=== PATIENT | female | born 1970 | race Caucasian/White ===

== ENCOUNTER 2019-05-16 17:06 | Observation (INO) | payer OTHER ==
[2019-05-16] MEDS ORDERED: AMOXIC-POT CLAV 875MG STARTER PACK 2 TAB BTL PO STA (17:28)
--- NOTE | 2019-05-16 17:32 | ED ---
General Adult HPI - General Chief complaint: Animal Bite Stated complaint: dog bite Time Seen by Provider: 05/16/19 17:21 Source: patient, RN notes reviewed Mode of arrival: ambulatory Limitations: no limitations - History of Present Illness Initial comments: 48-year-old female presents to the emergency department for a chief complaint of left thumb injury. Patient was bitten on the left thumb by a her dog last night. Patient states that she did clean the area thoroughly however today it was red so she went to urgent care. They sent her to the emergency department for further evaluation. Patient denies any streaking redness but states it does appear to be spreading somewhat up the thumb. Patient states she is unable to bend the IP joint of the left thumb. Patient is up-to-date on tetanus within the past 5 years. Dog is immunized for rabies and up-to-date. She denies fevers or chills. She denies any recent for immunocompromising state.Patient has no other complaints at this time including shortness of breath, chest pain, abdominal pain, nausea or vomiting, headache, or visual changes. - Related Data Home Medications Medication Instructions Recorded Confirmed Ibuprofen [Motrin Ib] 600 mg PO Q8H PRN 05/16/19 05/16/19 Allergies Allergy/AdvReac Type Severity Reaction Status Date / Time No Known Allergies Allergy Verified 05/16/19 18:26 Review of Systems ROS Statement: Those systems with pertinent positive or pertinent negative responses have been documented in the HPI. ROS Other: All systems not noted in ROS Statement are negative. Past Medical History Past Medical History: No Reported History History of Any Multi-Drug Resistant Organisms: None Reported Past Surgical History: Section Past Psychological History: No Psychological Hx Reported Smoking Status: Current every day smoker Past Alcohol Use History: Occasional Past Drug Use History: None Reported General Exam Limitations: no limitations General appearance: alert, in no apparent distress Head exam: Present: atraumatic, normocephalic, normal inspection Eye exam: Present: normal appearance, PERRL, EOMI. Absent: scleral icterus, conjunctival injection, periorbital swelling ENT exam: Present: normal exam, mucous membranes moist Neck exam: Present: normal inspection. Absent: tenderness, meningismus, lymphadenopathy Respiratory exam: Present: normal lung sounds bilaterally. Absent: respiratory distress, wheezes, rales, rhonchi, stridor Cardiovascular Exam: Present: regular rate, normal rhythm, normal heart sounds. Absent: systolic murmur, diastolic murmur, rubs, gallop, clicks Extremities exam: Present: other (Superficial lacerations noted to the dorsum of the left thumb. Capillary refill less than 2 seconds. There is erythema extending into the dorsum of the first metacarpal. No streaking redness. Patient unable to flex the IP joint of the left thumb. Patient is able to fully flex the MCP joint of the left thumb.) Course Vital Signs 05/16/19 17:25 Temperature 98.6 F Pulse Rate 68 Respiratory 18 Rate Blood Pressure 123/86 O2 Sat by Pulse 98 Oximetry Medical Decision Making - Medical Decision Making HPI and physical exam is documented. Dr. Ch evaluated patient, given inpatient admission with IV antibiotics. CBC / CMP unremarkable. CRP mildly elevated at 18.1. X-ray of the left thumb shows no acute fracture. I discussed this case with Maame Vazquez who recommends Unasyn and moist heat pad. Accepts the admission. - Lab Data Result diagrams: 05/16/19 18:15 05/16/19 18:27 Lab Results 05/16/19 05/16/19 05/16/19 Range/Units 18:15 18:27 18:27 WBC 8.8 (3.8-10.6) k/uL RBC 4.81 (3.80-5.40) m/uL Hgb 13.7 (11.4-16.0) gm/dL Hct 42.2 (34.0-46.0) % MCV 87.7 (80.0-100.0) fL MCH 28.5 (25.0-35.0) pg MCHC 32.5 (31.0-37.0) g/dL RDW 13.8 (11.5-15.5) % Plt Count 317 (150-450) k/uL Neutrophils % 58 % Lymphocytes % 32 % Monocytes % 6 % Eosinophils % 2 % Basophils % 0 % Neutrophils # 5.1 (1.3-7.7) k/uL Lymphocytes # 2.8 (1.0-4.8) k/uL Monocytes # 0.5 (0-1.0) k/uL Eosinophils # 0.1 (0-0.7) k/uL Basophils # 0.0 (0-0.2) k/uL Sodium 141 (137-145) mmol/L Potassium 4.0 (3.5-5.1) mmol/L Chloride 107 (98-107) mmol/L Carbon Dioxide 25 (22-30) mmol/L Anion Gap 9 mmol/L BUN 18 H (7-17) mg/dL Creatinine 0.91 (0.52-1.04) mg/dL Est GFR (CKD-EPI)AfAm 87 (>60 ml/min/1.73 sqM) Est GFR (CKD-EPI)NonAf 75 (>60 ml/min/1.73 sqM) Glucose 113 H (74-99) mg/dL Plasma Lactic Acid Scottie 1.5 (0.7-2.0) mmol/L Calcium 9.4 (8.4-10.2) mg/dL Total Bilirubin 0.5 (0.2-1.3) mg/dL AST 30 (14-36) U/L ALT 29 (4-34) U/L Alkaline Phosphatase 79 (38-126) U/L C-Reactive Protein 18.1 H (<10.0) mg/L Total Protein 8.3 H (6.3-8.2) g/dL Albumin 4.6 (3.5-5.0) g/dL Disposition Clinical Impression: Dog bite Disposition: ADMITTED IP TO THIS [facility] Instructions (If sedation given, give patient instructions): Animal Bite (ED) Is patient prescribed a controlled substance at d/c from ED?: No Referrals: None,Stated [Primary Care Provider] - 1-2 days Time of Disposition: 18:59
--- NOTE | 2019-05-16 17:58 | XR ---
EXAMINATION TYPE: XR finger LT DATE OF EXAM: 05/16/2019 COMPARISON: NONE HISTORY: Dogbite injury with pain. TECHNIQUE: 3 views left thumb are acquired. FINDINGS: No acute fracture or dislocation is seen. Joint spaces in the left thumb are preserved. No suspicious radiodense soft tissue foreign body present. IMPRESSION: As above.
[2019-05-16] MEDS ORDERED: SODIUM CHLORIDE 0.9% 1,000 ML IV STA (18:04)
[2019-05-16] MEDS ORDERED: AMPICILLIN-SULBACTAM 3 GM in SODIUM CHLORIDE 0.9% 100 ML IVPB STA (18:04)
[2019-05-16 18:45] LABS: Basophils % (A) 0 %; Eosinophils # (A) 0.1 k/uL (0-0.7); Eosinophils % (A) 2 %; HCT 42.2 % (34.0-46.0); HGB 13.7 gm/dL (11.4-16.0); Lymphocytes # (A) 2.8 k/uL (1.0-4.8); Lymphocytes % (A) 32 %; MCH 28.5 pg (25.0-35.0); MCHC 32.5 g/dL (31.0-37.0); MCV 87.7 fL (80.0-100.0); Mean Platelet Volume 7.9; Monocytes # (A) 0.5 k/uL (0-1.0); Monocytes % (A) 6 %; Neutrophils # (A) 5.1 k/uL (1.3-7.7); Neutrophils % (A) 58 %; Platelet Count 317 k/uL (150-450); RBC 4.81 m/uL (3.80-5.40); RDW 13.8 % (11.5-15.5); WBC 8.8 k/uL (3.8-10.6)
[2019-05-16 18:52] LABS: Albumin 4.6 g/dL (3.5-5.0); C Reactive Protein 18.1 mg/L (<10.0); Calcium 9.4 mg/dL (8.4-10.2); Total Bilirubin 0.5 mg/dL (0.2-1.3); Total Protein 8.3 g/dL (6.3-8.2)
[2019-05-16] MEDS ORDERED: NALOXONE 0.4 MG/ML 1 ML VIAL IV PRN (18:59)
[2019-05-16] MEDS ORDERED: traMADol 50 MG TAB PO PRN (18:59)
[2019-05-16] MEDS ORDERED: ONDANSETRON 4 MG/2 ML VIAL IVP PRN (18:59)
[2019-05-16] MEDS ORDERED: HYDROcodone/APAP 5-325MG 1 EACH TAB PO PRN (18:59)
[2019-05-16] MEDS ORDERED: AMPICILLIN-SULBACTAM 3 GM in SODIUM CHLORIDE 0.9% 100 ML IVPB SCH (19:15)
[2019-05-16] MEDS: SODIUM CHLORIDE 0.9% 1,000 ML IV SCH (19:30)
[2019-05-16] MEDS ORDERED: ACETAMINOPHEN TAB 325 MG TAB PO PRN (21:36)
[2019-05-16] MEDS: IBUPROFEN 800 MG TAB PO PRN (21:43)
[2019-05-17] MEDS: AMPICILLIN-SULBACTAM 3 GM in SODIUM CHLORIDE 0.9% 100 ML IVPB SCH ×5 (00:33→23:31)
[2019-05-17] MEDS: SODIUM CHLORIDE 0.9% 1,000 ML IV SCH ×3 (03:03→17:06)
--- NOTE | 2019-05-17 11:18 | P.HPOR ---
History of Present Illness H&P Date: 05/17/19 Chief Complaint: Dog bite left thumb This is a 48-year-old female who is admitted to the emergency department last evening. She was bit by her own dog on 05/15/2019. She began to have increased pain, swelling and redness. She states that her dog is up-to-date on its shots. The emergency department had concerns over her flexor tendon sheath and was admitted for IV antibiotics. Patient states that her pain is improved today. Past Medical History Past Medical History: No Reported History History of Any Multi-Drug Resistant Organisms: None Reported Past Surgical History: Section Past Anesthesia/Blood Transfusion Reactions: No Reported Reaction Past Psychological History: No Psychological Hx Reported Smoking Status: Current every day smoker Past Alcohol Use History: Occasional Past Drug Use History: None Reported - Past Family History Mother Family Medical History: No Reported History Father History Unknown: Yes Medications and Allergies Home Medications Medication Instructions Recorded Confirmed Type Ibuprofen [Motrin Ib] 600 mg PO Q8H PRN 05/16/19 05/16/19 History Allergies Allergy/AdvReac Type Severity Reaction Status Date / Time No Known Allergies Allergy Verified 05/16/19 18:26 Physical Examination This is a pleasant 48-year-old female in no acute distress. She is alert and oriented at this time. Exam of the left hand reveals mild erythema and mild swelling to the thumb. There are 2 small punctures about the dorsal and radial aspect of the thumb. She has full extension of the thumb and slightly limited flexion secondary to pain and swelling. She complains of pain about the dorsum of the thumb with flexion. There is no tenderness with palpation about the flexor tendon sheath. Neurovascular status to the upper extremity is intact. Results Hand x-rays are reviewed. There is a slight irregularity noted to the distal aspect of the proximal phalanx. There is suspicion for a nondisplaced fracture. - Labs Labs: Abnormal Lab Results - Last 24 Hours (Table) 05/16/19 Range/Units 18:27 BUN 18 H (7-17) mg/dL Glucose 113 H (74-99) mg/dL C-Reactive Protein 18.1 H (<10.0) mg/L Total Protein 8.3 H (6.3-8.2) g/dL H & H 05/16/19 Range/Units 18:15 Hgb 13.7 (11.4-16.0) gm/dL Hct 42.2 (34.0-46.0) % Result Diagrams: 05/16/19 18:15 05/16/19 18:27 Assessment and Plan (1) Cellulitis of left thumb Current Visit: Yes Status: Acute Code(s): L03.012 - CELLULITIS OF LEFT FINGER SNOMED Code(s): 34728488386230224 (2) Dog bite Current Visit: Yes Status: Acute Code(s): W54.0XXA - BITTEN BY DOG, INITIAL ENCOUNTER SNOMED Code(s): 674708777 Plan: The clinical and x-ray findings are discussed with the patient. It is recommended she continue IV antibiotics for at least 24 more hours. She is to continue moist heat to the thumb as well. She may resume her regular diet. I will order a thumb brace
[2019-05-17] MEDS: IBUPROFEN 800 MG TAB PO PRN (19:14)
[2019-05-18] MEDS: AMPICILLIN-SULBACTAM 3 GM in SODIUM CHLORIDE 0.9% 100 ML IVPB SCH ×2 (08:21→12:10)
[2019-05-18 14:46] VITALS: BP 139/76; PULSE 60; RESP 17; TEMP 98
--- NOTE | 2019-05-18 15:04 | P.DS ---
Providers Date of admission: 05/16/19 19:09 Expected date of discharge: 05/18/19 Attending physician: Kana Garvey Primary care physician: Stated None - Discharge Diagnosis(es) (1) Cellulitis of left thumb Status: Acute (2) Dog bite Status: Acute (3) Fracture of thumb, left, closed Status: Acute Hospital Course: The patient is a 48-year-old female who presented to the emergency department on 05/16/2019 after sustaining a dog bite on her left thumb on 05/15/2019. She was bit by her own dog who is up-to-date on his vaccinations. She noticed increased swelling and pain in the thumb and presented to the emergency department for further evaluation. There was a concern for flexor tenosynovitis and she was placed on antibiotics and admitted for further care by orthopedics. She was started on Unasyn and moist heat. The thumb has improved since admission. A brace has been ordered for her thumb but the patient is unable to wear due to pain at this time. A fracture was found at the head of the proximal phalanx which is nondisplaced. On the day of discharge, the patient is alert and oriented 3. Exam of the left hand reveals improved erythema and swelling to the left thumb, now concentrated to the IP joint. There are 2 puncture wounds to the dorsal radial aspect of the thumb. She has full extension and limited flexion of the thumb due to pain. There is tenderness to the IP joint of the thumb with no tenderness along the flexor tendon sheath. Neurological and circulatory status is intact. The patient is orthopedically stable for discharge home today on oral antibiotics. She will follow with Dr. Kana Garvey in the office. Pertinent Studies: Laboratory Tests 05/16/19 05/16/19 18:15 18:27 WBC 8.8 RBC 4.81 Hgb 13.7 BUN 18 H Est GFR (CKD-EPI)NonAf 75 C-Reactive Protein 18.1 H Total Protein 8.3 H Patient Condition at Discharge: Good Plan - Discharge Summary New Discharge Prescriptions: New Amoxicillin/Potassium Clav [Augmentin 875-125 Tablet] 1 tab PO Q12HR 10 Days #20 tab RX: HYDROcodone/APAP 5-325MG [[place] 5-325] 1 - 2 each PO Q4-6H PRN #30 tab PRN Reason: Pain No Action Ibuprofen [Motrin Ib] 600 mg PO Q8H PRN PRN Reason: Pain Discharge Medication List Ibuprofen [Motrin Ib] 600 mg PO Q8H PRN 05/16/19 [History] Amoxicillin/Potassium Clav [Augmentin 875-125 Tablet] 1 tab PO Q12HR 10 Days #20 tab 05/17/19 [Rx] HYDROcodone/APAP 5-325MG [[place] 5-325] 1 - 2 each PO Q4-6H PRN #30 tab 05/17/19 [Rx] Follow up Appointment(s)/Referral(s): None,Stated [Primary Care Provider] - 1-2 days Kana Garvey DO [Doctor of Osteopathic Medicine] - 3 Days (call office to set up appt.) Patient Instructions/Handouts: Animal Bite (ED) Activity/Diet/Wound Care/Special Instructions: No smoking, cessation information given. Regular diet Keep thumb clean and dry. Elevate at rest. Wear brace, No use of left hand. Discharge Disposition: HOME SELF-CARE
== END 2019-05-18 15:53 | disposition home or self-care (01) ==
LOC: EC 17:06 → 6NMEDSUR 19:09
PROVIDERS: ADMIT Orthopaedic Surgery; ATTEND Orthopaedic Surgery
DX: L03.012 Cellulitis of left finger (principal); S62.515A Nondisplaced fracture of proximal phalanx of left thumb, initial encounter for closed fracture; S60.372A Other superficial bite of left thumb, initial encounter; F17.200 Nicotine dependence, unspecified, uncomplicated; W54.0XXA Bitten by dog, initial encounter
CPT/HCPCS: 96361 ×4; 96365; 96366 ×2; 99284; 36415; 80053; 83605; 85025; 86140; 87040; 73140; G0378 ×3; J0295 ×3